=== PATIENT | female | born 2000 | race African-American/Black ===

== ENCOUNTER 2021-10-14 13:18 | Emergency (ER) | payer OTHER ==
[~2021-10-14] VITALS: Ht 157.5 cm; Wt 77.1 kg
--- NOTE | 2021-10-14 13:35 | NUR ---
patient brought into room 5a. complaining of lower abdominal pain has been seen at different hospital before where appendicitis was ruled out per patient statement. continues to have pain so has come in to be seen today.
[2021-10-14] MEDS ORDERED: QUET100T PO (13:36)
[2021-10-14] MEDS ORDERED: DEXT5TAB15 PO (13:38)
--- NOTE | 2021-10-14 13:38 | NUR ---
patient waiting to be evaluated by ER physician and taken to the bathroom for urine specimen.
[2021-10-14] MEDS ORDERED: TRAZ-182 PO (13:40)
[2021-10-14] MEDS ORDERED: LITH150C PO (13:41)
--- NOTE | 2021-10-14 13:48 | NUR ---
patient being seen and evaluated by doctor kaplan.
[2021-10-14] MEDS ORDERED: MORPHINE SULFATE 2 MG/1 ML DISP.SYRIN IV ONE (14:00)
[2021-10-14] MEDS ORDERED: IV NORMAL SALINE 1000 ML BAG IV ONE (14:00)
[2021-10-14] MEDS ORDERED: ONDANSETRON 4 MG/2 ML VIAL IV ONE (14:00)
[2021-10-14] MEDS ORDERED: MORPHINE SULFATE 2 MG/1 ML DISP.SYRIN ONE (14:01)
[2021-10-14] MEDS ORDERED: ONDANSETRON 4 MG/2 ML VIAL ONE (14:01)
[2021-10-14 14:02] LABS: *BILIRUBIN,URIN NEGATIVE (NEGATIVE); *BLOOD, URINE NEGATIVE (NEGATIVE); *COLOR,URINE YELLOW (YELLOW); *KETONES,URINE NEGATIVE (NEGATIVE); *UROBILINOGEN,URINE 0.2 E.U./dl (NORMAL); LEUKOCYTE ESTERASE ,URINE 3+ (NEGATIVE); NITRITE, URINE NEGATIVE (NEGATIVE); PH,URINE 8.5 (5.0-8.0); UGLUCOSE NEGATIVE (NEGATIVE)
[2021-10-14 14:05] LABS: *CLARITY,URINE SLIGHTLY CLOUDY (CLEAR)
[2021-10-14 14:06] LABS: *URINE HCG, QUAL NEGATIVE (NEGATIVE)
[2021-10-14 14:15] LABS: HEMATOCRIT 36.7 % (31.2-41.9); MEAN CORPUSCULAR HEMOGLOBIN 24.1 uug (24.7-32.8); MEAN CORPUSCULAR VOLUME 72.9 fL (75.5-95.3); PLATELET COUNT (AUTO) 336 K/uL (179-408)
--- NOTE | 2021-10-14 14:15 | NUR ---
patient taken to CT scan at this time.
[2021-10-14 14:27] LABS: RBC,URINE 0-3 /HPF (0-3); WBC,URINE 20-50 /HPF (0-3)
[2021-10-14 14:28] LABS: BACTERIA,URINE MODERATE /HPF (NONE SEEN); SQUAMOUS EPITHELIAL CELL,UR MODERATE /HPF (NONE SEEN)
[2021-10-14 14:31] LABS: BILIRUBIN,DIRECT 0.2 mg/dL (0.0-0.2); CREATININE 0.8 mg/dL (0.6-1.3); POTASSIUM 3.7 mmol/L (3.5-5.1); TOTAL PROTEIN, SERUM 7.6 g/dL (6.4-8.2)
[2021-10-14] MEDS ORDERED: MORPHINE SULFATE 4 MG/1 ML DISP.SYRIN IV ONE (14:45)
[2021-10-14] MEDS ORDERED: MORPHINE SULFATE 4 MG/1 ML DISP.SYRIN ONE (14:48)
[2021-10-14] MEDS ORDERED: KETOROLAC TROMETHAMINE 30 MG INJ ONE (15:18)
[2021-10-14] MEDS ORDERED: KETOROLAC TROMETHAMINE 30 MG INJ IVP ONE (15:30)
[2021-10-14] MEDS ORDERED: CEFTRIAXONE /D5W 50ML IVPB **ER PYXIS IV ONE (15:44)
[2021-10-14] MEDS ORDERED: CEFTRIAXONE 1 G in IV DEXTROSE 5% 50 ML IV ONE (15:45)
--- NOTE | 2021-10-14 16:20 | NUR ---
patient states pain is relieved better after toradol.
[2021-10-14] MEDS ORDERED: CEPH500C2 PO (16:26)
--- NOTE | 2021-10-14 16:52 | NUR ---
DCD instructions & prescription given to pt. who verbalized understanding. pt. left ambulatory pain well controlled.
[2021-10-15] MEDS ORDERED: LITH600C PO (18:32)
[2021-10-15] MEDS ORDERED: TRAZ-257 PO (18:32)
[2021-10-15] MEDS ORDERED: AMPH20CA3 PO (18:32)
[2021-10-15] MEDS ORDERED: QUET100T PO (18:32)
== END 2021-10-14 16:59 | disposition home or self-care (01) ==
LOC: ER 13:18
DX: N39.0 Urinary tract infection, site not specified (principal); N83.209 Unspecified ovarian cyst, unspecified side; R10.31 Right lower quadrant pain; Z82.49 Family history of ischemic heart disease and other diseases of the circulatory system; F31.9 Bipolar disorder, unspecified; Z79.899 Other long term (current) drug therapy
CPT/HCPCS: 36415; 74176; 76856; 80048; 80076; 81001; 83690; 84703; 85025; 87086; 96361; 96365; 96375; 96376; 99285; J0696; J1885; J2270 ×2; J2405; A4663

== ENCOUNTER 2021-10-15 18:14 | Inpatient (IN) | payer OTHER ==
[~2021-10-15] VITALS: Ht 157.5 cm; Wt 86.2 kg
[~2021-10-15 18:14] MED LIST: CEPH500C2 PO; DEXT5TAB15 PO; LITH150C PO; QUET100T PO; TRAZ-182 PO
[2021-10-15] MEDS ORDERED: AMPH20CA3 PO (18:32)
[2021-10-15] MEDS ORDERED: TRAZ-257 PO (18:32)
[2021-10-15] MEDS ORDERED: QUET100T PO (18:32)
[2021-10-15] MEDS ORDERED: LITH600C PO (18:32)
[2021-10-15] MEDS ORDERED: KETOROLAC TROMETHAMINE 15 MG INJ IVP ONE (18:45)
[2021-10-15] MEDS ORDERED: ONDANSETRON 4 MG/2 ML VIAL IV ONE (18:45)
[2021-10-15] MEDS ORDERED: HYDROMORPHONE 1 MG/1 ML DISP.SYRIN IV ONE ×2 (18:45→21:30)
[2021-10-15] MEDS ORDERED: HYDROMORPHONE 1 MG/1 ML DISP.SYRIN ONE ×2 (18:46→21:57)
[2021-10-15] MEDS ORDERED: KETOROLAC TROMETHAMINE 15 MG INJ ONE (18:47)
[2021-10-15 18:57] LABS: HEMATOCRIT 35.5 % (31.2-41.9); MEAN CORPUSCULAR HEMOGLOBIN 23.8 uug (24.7-32.8); MEAN CORPUSCULAR VOLUME 73.5 fL (75.5-95.3); PLATELET COUNT (AUTO) 352 K/uL (179-408)
[2021-10-15 18:59] LABS: CARBON DIOXIDE 27 mmol/L (21-32); CHLORIDE 103 mmol/L (98-107); CREATININE 0.9 mg/dL (0.6-1.3); GLUCOSE 104 mg/dL (74-106); POTASSIUM 3.8 mmol/L (3.5-5.1); UREA NITROGEN, BLOOD 4 mg/dL (7-18)
[2021-10-15] MEDS ORDERED: ONDANSETRON 4 MG/2 ML VIAL ONE (19:00)
[2021-10-15 19:05] LABS: ALANINE AMINOTRANSFERASE 19 U/L (14-59); ALKALINE PHOSPHATASE 72 U/L (50-136); ASPARTATE AMINOTRANSFERASE 12 U/L (15-37); BILIRUBIN,DIRECT 0.2 mg/dL (0.0-0.2); BILIRUBIN,TOTAL 0.4 mg/dL (0.2-1.0); LIPASE 53 U/L (73-393); TOTAL PROTEIN, SERUM 7.5 g/dL (6.4-8.2)
[2021-10-15] MEDS ORDERED: IV NORMAL SALINE 250 ML BAG ONE (19:30)
[2021-10-15] MEDS ORDERED: PIPERACILLIN SODIUM/TAZOBACTAM 3.375 G in IV DEXTROSE 5% 50 ML IV ONE (19:30)
[2021-10-15] MEDS ORDERED: IOHEXOL 300MG/ML 100 ML INFUS..BTL ONE ×2 (19:31→19:49)
[2021-10-15] MEDS ORDERED: SWABABLE VALVE TRANSFER SET EA MC ONE (19:33)
[2021-10-15] MEDS ORDERED: PIPERACILLIN/TAZOBACTAM/D5W 50 ML IV ONE (19:40)
--- NOTE | 2021-10-15 20:01 | NUR ---
ESTHER CALLED AND WANTS A CONSENT OFR CT - OBTAINED CONSENT AND SIGNED BY PATIENT .
[2021-10-15 20:03] LABS: *BILIRUBIN,URIN NEGATIVE (NEGATIVE); *CLARITY,URINE SLIGHTLY CLOUDY (CLEAR); *COLOR,URINE YELLOW (YELLOW); *KETONES,URINE NEGATIVE (NEGATIVE); *UROBILINOGEN,URINE 0.2 E.U./dl (NORMAL); LEUKOCYTE ESTERASE ,URINE 3+ (NEGATIVE); NITRITE, URINE NEGATIVE (NEGATIVE); UGLUCOSE NEGATIVE (NEGATIVE)
[2021-10-15 20:04] LABS: *BLOOD, URINE TRACE (NEGATIVE)
--- NOTE | 2021-10-15 20:22 | NUR ---
PATIENT WENT TO CT VIA WHEELCHAIR FOR CT ABDOMEN /PELVIS WITH CONTRAST .
--- NOTE | 2021-10-15 20:35 | NUR ---
BACK FROM CT - TOLERATED TEST.
[2021-10-15] MEDS ORDERED: diphenhydrAMINE 50 MG/1 ML VIAL IV ONE (21:30)
--- NOTE | 2021-10-15 21:55 | NUR ---
CALLED EPIC SERVICE FOR SARAH JACKSON .
[2021-10-15] MEDS ORDERED: diphenhydrAMINE 50 MG/1 ML VIAL ONE (21:57)
--- NOTE | 2021-10-15 22:28 | NUR ---
[facility] OF [facility] -STAFF TEL:[phone]:Geraldo DAILEY -CLINICAL DIRECTOR TEL:([phone]) LILIAM REYES -REHANGER TEl:([phone]) PREM CALIXTO TELEPHONE ANSWERING SERVICE OPERATOR NURSE -[phone]. PLEASE CALL FACILITY ONCE PATIENT IS DISCHARGE SO PERSONNEL FROM THE FACILITY CAN PICK HER UP .
[2021-10-15] MEDS ORDERED: LORAZEPAM 2 MG/1 ML VIAL IV PRN (22:30)
[2021-10-15] MEDS ORDERED: ACETAMINOPHEN 650 MG SUPP.RECT RC PRN (22:30)
--- NOTE | 2021-10-15 22:47 | NUR ---
PATIENT ORDERED FOOD FROM THE [facility] - INFORMED NPO AFTER MIDNIGHT .
--- NOTE | 2021-10-15 22:48 | NUR ---
NOTIFIED PATIENT MOTHER THAT HER DAUGHTER WILL BE ADMITTED TO THE MEDICAL SURGICAL FLOOR UNIT BED NO.301 A, AND VISITING HOURS STARTS AT 0900 TO 2100.
--- NOTE | 2021-10-15 22:59 | NUR ---
COVID -TEST COLLECTED AND MRSA DONE .
[2021-10-15 23:07] LABS: BACTERIA,URINE MODERATE /HPF (NONE SEEN); SQUAMOUS EPITHELIAL CELL,UR MODERATE /HPF (NONE SEEN); WBC,URINE 20-50 /HPF (0-3)
--- NOTE | 2021-10-15 23:12 | NUR ---
Pt. admitted to MEDICAL SURGICAL UNIT BED ROOM NO.301A REPORT GIVEN TO AUGUST MENDEZ USING SBARQ , under care of ,DX:ABDOMINAL APIN -COLITIS R/O APPENDICITIS . Belongings List completed AND ALL BELONGINGS WENT WITH PATIENT.
--- NOTE | 2021-10-16 00:20 | NUR ---
Received patient from ER, alert, oriented x4. No shortness of breath noted, Complaint of pain when mobilizing. Not noted at this time. Instructed on NPO. IVF D5% NS 0.9 1L at 80cc/hr started as ordered. Patient voiding freely and ambulating to the bathroom.
[2021-10-16] MEDS ORDERED: PIPERACILLIN SODIUM/TAZOBACTAM 3.375 G in IV DEXTROSE 5% 50 ML IV SCH ×2 (02:00→08:00)
[2021-10-16] MEDS ORDERED: PIPERACILLIN/TAZOBACTAM/D5W 50 ML IV ONE (02:22)
[2021-10-16] MEDS ORDERED: REMEDY ESSENTIAL ZINC PASTE 113 GM TOP PRN (02:30)
[2021-10-16] MEDS: MORPHINE SULFATE 2 MG/1 ML DISP.SYRIN IV PRN ×4 (02:44→14:46)
--- NOTE | 2021-10-16 02:44 | NUR ---
Patient complaint of pain, 7/10 at abdominal area, Morphine 2mg IV PRN given, able to slept well 30minutes after administration. Abdomen is soft , no tenderness noted, no vomiting and nausea noted.
[2021-10-16] MEDS: IV D5/ 0.9% NACL 1,000 ML IV PRN ×3 (02:51→19:21)
[2021-10-16 06:26] LABS: HEMATOCRIT 34.2 % (31.2-41.9); MEAN CORPUSCULAR VOLUME 74.6 fL (75.5-95.3); PLATELET COUNT (AUTO) 326 K/uL (179-408)
[2021-10-16 07:03] LABS: BILIRUBIN,TOTAL 0.4 mg/dL (0.2-1.0); CREATININE 0.8 mg/dL (0.6-1.3); MAGNESIUM 2.2 mg/dL (1.8-2.4); PHOSPHOROUS 2.8 mg/dL (2.5-4.9); POTASSIUM 3.7 mmol/L (3.5-5.1); TOTAL PROTEIN, SERUM 6.5 g/dL (6.4-8.2)
[2021-10-16] MEDS: PANTOPRAZOLE SODIUM 40 MG VIAL IV SCH (08:23)
[2021-10-16 09:56] LABS: BAND % (MANUAL) 1 % (0-10); EOSINOPHILS % (MANUAL) 6 % (0-8); LYMPHOCYTES % (MANUAL) 7 % (20-40); MONOCYTES % (MANUAL) 6 % (2-10); NEUTROPHILS % (MANUAL) 80 % (42-75)
[2021-10-16] MEDS: PIPERACILLIN SODIUM/TAZOBACTAM 3.375 G in IV DEXTROSE 5% 100 ML IV SCH ×2 (10:48→18:04)
[2021-10-16 12:04] VITALS: BP 116/72
[2021-10-16] MEDS ORDERED: LITHIUM CARBONATE 1200 MG PO SCH (13:15)
[2021-10-16] MEDS ORDERED: ATOM18CA PO (13:23)
[2021-10-16] MEDS ORDERED: OLAN15TA3 PO (13:25)
[2021-10-16] MEDS ORDERED: LITH300T PO (13:45)
[2021-10-16] MEDS: KETOROLAC TROMETHAMINE 15 MG INJ IVP PRN (15:51)
[2021-10-16] MEDS: LITHIUM CARBONATE 300 MG TABLET.SA PO SCH (15:54)
[2021-10-16 16:10] VITALS: BP 115/69
[2021-10-16] MEDS ORDERED: LITHIUM CARBONATE 150 MG CAPSULE PO SCH (17:00)
[2021-10-16] MEDS ORDERED: QUETIAPINE FUMARATE 100 MG TABLET PO SCH (18:00)
[2021-10-16] MEDS ORDERED: TRAZODONE 50 MG TABLET PO SCH (18:00)
[2021-10-16] MEDS: TRAZODONE 100 MG TABLET PO SCH (18:05)
[2021-10-16] MEDS: QUETIAPINE FUMARATE 100 MG TABLET PO SCH (18:05)
[2021-10-16] MEDS: ONDANSETRON 4 MG/2 ML VIAL IV PRN (18:06)
[2021-10-16 20:00] VITALS: BP 107/61
--- NOTE | 2021-10-16 20:00 | NUR ---
PATIENT ASLEEP IN BED. NO S/S OF ANY PAIN OR DISCOMFORT. VS WNL. NO. RESP. DISTRESS NOTED. CALL LIGHT IN REACH. ALL NEEDS ATTENDED. WILL CONTINUE TO MONITOR AND ASSESS.
[2021-10-16] MEDS: OLANZAPINE ZYDIS 5 MG TAB.RAPDIS PO SCH (20:59)
[2021-10-16] MEDS ORDERED: OLANZAPINE ZYDIS 5 MG TAB.RAPDIS PO SCH (21:00)
[2021-10-17] MEDS: MORPHINE SULFATE 2 MG/1 ML DISP.SYRIN IV PRN ×4 (00:21→21:50)
[2021-10-17] MEDS: PIPERACILLIN SODIUM/TAZOBACTAM 3.375 G in IV DEXTROSE 5% 100 ML IV SCH ×3 (02:08→17:44)
[2021-10-17] MEDS: KETOROLAC TROMETHAMINE 15 MG INJ IVP PRN (03:23)
[2021-10-17] MEDS: ACETAMINOPHEN 325 MG TABLET PO PRN ×2 (03:59→14:46)
[2021-10-17 04:00] VITALS: BP 100/40
--- NOTE | 2021-10-17 04:00 | NUR ---
PATIENT AWAKE IN BED. TEMPERATURE 101.2, COOLING MEASURES PROVIDED AND TYLENOL 650MG PO PRN GIVEN. WILL CONTINUE TO MONITOR AND ASSESS.
[2021-10-17] MEDS: IV D5/ 0.9% NACL 1,000 ML IV PRN ×2 (04:56→17:20)
--- NOTE | 2021-10-17 05:11 | NUR ---
PATIENT ASLEEP IN BED. EASILY AROUSABLE. AFEBRILE. RECHECKED PATIENTS TEMPERATURE AND NOTED 98.3. PATIENT DENIES ANY PAIN OR DISCOMFORT. NO RESP. DISTRESS NOTED. IVF INFUSING WELL. CALL LIGHT IN REACH. ALL NEEDS ATTENDED. WILL CONTINUE TO MONITOR AND ASSESS.
--- NOTE | 2021-10-17 08:00 | NUR ---
AWAKE ALERT AND ORIENTED X3, RESTING COMFORTABLY IN BED CONTINUE WITH IVF AND IV ANTIBIOTICS, NO ALLERGY REACTION
[2021-10-17] MEDS: PANTOPRAZOLE SODIUM 40 MG VIAL IV SCH (08:41)
[2021-10-17] MEDS ORDERED: AMPHET PO SCH (09:00)
[2021-10-17] MEDS ORDERED: D AMPHET PO SCH (09:00)
[2021-10-17] MEDS ORDERED: AMPHET ASP PO SCH (09:00)
[2021-10-17] MEDS ORDERED: [UNRECOGNIZED DRUG - OTHER] PO SCH (09:00)
[2021-10-17 10:00] LABS: HEMATOCRIT 34.9 % (31.2-41.9); MEAN CORPUSCULAR HEMOGLOBIN 24.1 uug (24.7-32.8); PLATELET COUNT (AUTO) 294 K/uL (179-408)
[2021-10-17 10:05] LABS: CREATININE 0.9 mg/dL (0.6-1.3); POTASSIUM 3.4 mmol/L (3.5-5.1)
[2021-10-17 11:01] VITALS: BP 106/50
[2021-10-17 11:04] VITALS: BP 115/65
[2021-10-17] MEDS ORDERED: LITHIUM CARBONATE 300 MG TABLET.SA PO SCH ×2 (12:00)
--- NOTE | 2021-10-17 12:00 | NUR ---
VOMITED X1 WITH FOOD PREVIOUSLY INGESTED, MEDICATED WITH ZOFRAN WITH GOOD RELIEF
[2021-10-17] MEDS: LITHIUM CARBONATE 300 MG TABLET.SA PO SCH (12:09)
[2021-10-17] MEDS: ONDANSETRON 4 MG/2 ML VIAL IV PRN (14:01)
[2021-10-17 15:11] VITALS: BP 137/75
--- NOTE | 2021-10-17 15:19 | NUR ---
MULTIPLE IV ATTEMPT DONE BUT TO NO AVAIL, MIDLINE INSERTION DONE ON HER RIGHT UPPER ARM #18
--- NOTE | 2021-10-17 15:28 | NUR ---
TEMP 101.O AND ABOVE TYLENOL GIVEN ORALLY AND OBSERVE
[2021-10-17] MEDS ORDERED: POTASSIUM CHLORIDE 20 MEQ TAB.PRT.SR PO ONE (16:00)
[2021-10-17] MEDS: TRAZODONE 100 MG TABLET PO SCH (17:40)
[2021-10-17] MEDS: QUETIAPINE FUMARATE 100 MG TABLET PO SCH (17:40)
[2021-10-17 19:41] LABS: EOSINOPHILS % (MANUAL) 4 % (0-8); LYMPHOCYTES % (MANUAL) 16 % (20-40); MONOCYTES % (MANUAL) 16 % (2-10); NEUTROPHILS % (MANUAL) 64 % (42-75)
[2021-10-17] MEDS: OLANZAPINE ZYDIS 5 MG TAB.RAPDIS PO SCH (21:00)
--- NOTE | 2021-10-17 21:25 | NUR ---
Pt refused Olanzapine 15 mg PO. Educated pt on risks and benefits of medication, continued to refused. Pt states, " I stopped taking the medication because it gives me stomach issues". 15 mg Olanzapine opened and wasted.
[2021-10-17] MEDS ORDERED: NORMAL SALINE NASAL 45 ML BOTTLE NS PRN (23:00)
[2021-10-18] MEDS: ACETAMINOPHEN 325 MG TABLET PO PRN ×2 (00:29→20:37)
[2021-10-18] MEDS: MORPHINE SULFATE 2 MG/1 ML DISP.SYRIN IV PRN ×7 (01:13→21:39)
[2021-10-18] MEDS: PIPERACILLIN SODIUM/TAZOBACTAM 3.375 G in IV DEXTROSE 5% 100 ML IV SCH ×3 (01:13→16:23)
--- NOTE | 2021-10-18 01:15 | NUR ---
Pt temp slightly elevated, 100.2. Cooling measures initiated, Tylenol given. No acute distress noted.
[2021-10-18 04:00] VITALS: BP 107/77
[2021-10-18] MEDS: IV D5/ 0.9% NACL 1,000 ML IV PRN ×2 (05:56→18:46)
[2021-10-18 07:05] LABS: PLATELET COUNT (AUTO) 279 K/uL (179-408)
[2021-10-18 07:16] LABS: CREATININE 0.9 mg/dL (0.6-1.3); MAGNESIUM 1.9 mg/dL (1.8-2.4); PHOSPHOROUS 3.4 mg/dL (2.5-4.9); POTASSIUM 3.8 mmol/L (3.5-5.1)
--- NOTE | 2021-10-18 07:19 | NUR ---
pt slept throughout the night. Complained of pain around abdominal area, morphine IV given as ordered. KP midline intact and running D5NS @ 80mls/hr. ZOSYN ABX given. No signs of acute distress. Patient c/o nose congestion, [place] spray nasal ordered per MD. Able to walk to bathroom. Compliant with care. No episodes of vomiting. Droplet precautions maintained. Call lights within reach. Safety measures maintained.
[2021-10-18 07:26] LABS: NEUTROPHILS % (MANUAL) 0 % (42-75)
[2021-10-18] MEDS: PANTOPRAZOLE SODIUM 40 MG VIAL IV SCH ×2 (09:30→20:37)
[2021-10-18 10:05] VITALS: BP 121/79
[2021-10-18] MEDS: BENZONATATE 100 MG CAPSULE PO SCH ×3 (11:37→21:40)
[2021-10-18] MEDS: LITHIUM CARBONATE 300 MG TABLET.SA PO SCH (11:38)
--- NOTE | 2021-10-18 12:00 | NUR ---
NO ACUTE CHANGE FROM MORNING ASSESSMENT
[2021-10-18 12:38] VITALS: BP 127/88
--- NOTE | 2021-10-18 13:39 | NUR ---
DR MINAYA CALLED FOR GI CONSULT WITH ORDER TO COLLECT STOOL AND NO NEED FOR COLONOSCOPY AT THIS TIME
[2021-10-18 16:06] VITALS: BP 137/79
--- NOTE | 2021-10-18 17:16 | NUR ---
CONTINUE PAIN MANAGEMENT ORDERED, NO BLOODY STOOL STATED BY PATIENT. CONTINUE IV ANTIBIOTIC
[2021-10-18] MEDS: QUETIAPINE FUMARATE 100 MG TABLET PO SCH (17:32)
[2021-10-18] MEDS: TRAZODONE 100 MG TABLET PO SCH (17:32)
[2021-10-18] MEDS: DICYCLOMINE HCL 10 MG CAPSULE PO SCH (20:13)
[2021-10-18 20:27] VITALS: BP 96/51
[2021-10-18] MEDS: OLANZAPINE ZYDIS 5 MG TAB.RAPDIS PO SCH (21:00)
[2021-10-19] MEDS: DICYCLOMINE HCL 10 MG CAPSULE PO SCH ×4 (00:29→17:39)
[2021-10-19] MEDS: MORPHINE SULFATE 2 MG/1 ML DISP.SYRIN IV PRN ×6 (00:36→21:11)
[2021-10-19 01:06] LABS: *OCCULT BLOOD STOOL NEGATIVE (NEGATIVE)
[2021-10-19] MEDS: PIPERACILLIN SODIUM/TAZOBACTAM 3.375 G in IV DEXTROSE 5% 100 ML IV SCH ×3 (01:06→17:39)
[2021-10-19 04:30] VITALS: BP 120/69
[2021-10-19] MEDS: BENZONATATE 100 MG CAPSULE PO SCH ×3 (05:05→21:01)
[2021-10-19 06:54] LABS: HEMATOCRIT 34.6 % (31.2-41.9); MEAN CORPUSCULAR HEMOGLOBIN 24.3 uug (24.7-32.8); MEAN CORPUSCULAR VOLUME 73.7 fL (75.5-95.3); PLATELET COUNT (AUTO) 307 K/uL (179-408)
--- NOTE | 2021-10-19 06:54 | NUR ---
Pt slept intermittently through the night. AOX4. Able to make needs known. Morphine IV given as ordered for pain. Stool sample sent to lab. Pt complained of congestion in nose, gave pt [place] Nasal [place]. Effective for congestion. KP midline intact, infusing D5NS at 80 mls/hr. Zosyn abx given. No signs of acute distress. Denies SOB. Snacks given as requested. Droplet precautions. Call lights within reach. Safety measures maintained.
[2021-10-19 07:07] LABS: CREATININE 0.8 mg/dL (0.6-1.3); MAGNESIUM 1.8 mg/dL (1.8-2.4); PHOSPHOROUS 3.5 mg/dL (2.5-4.9); POTASSIUM 3.6 mmol/L (3.5-5.1)
[2021-10-19] MEDS: PANTOPRAZOLE SODIUM 40 MG VIAL IV SCH ×2 (09:22→21:09)
[2021-10-19] MEDS: IV D5/ 0.9% NACL 1,000 ML IV PRN ×2 (10:44→22:30)
--- NOTE | 2021-10-19 11:00 | NUR ---
Patient was given Morphine 2 mg/ ml IV push at 10:22, but it was documented in the computer twice. I could not undo the administration time 10:45 that is wrong.
[2021-10-19] MEDS ORDERED: KETOROLAC TROMETHAMINE 10 MG TABLET PO PRN (12:00)
[2021-10-19 12:08] VITALS: BP 112/68
[2021-10-19] MEDS: LITHIUM CARBONATE 300 MG TABLET.SA PO SCH (12:26)
[2021-10-19 16:15] VITALS: BP 113/75
--- NOTE | 2021-10-19 16:24 | NUR ---
Received patient awake in her room. A/O X 3 to person, place. Pt. was having severe abdominal pain, Morphine 2 mg/ml was given at 10:45 and 15:17, effective. Patient tested positive for Covid. Pt. has upper arm midline. Pt. is ambulatory. Continent. Compliant with medications. Pt. is on cardiac diet. Pt. is bipolar. Fall and safety precautions implemented.
[2021-10-19] MEDS: TRAZODONE 100 MG TABLET PO SCH (17:39)
[2021-10-19] MEDS: QUETIAPINE FUMARATE 100 MG TABLET PO SCH (17:39)
[2021-10-19 20:24] VITALS: BP 120/64
[2021-10-19] MEDS: OLANZAPINE ZYDIS 5 MG TAB.RAPDIS PO SCH (21:00)
[2021-10-20] MEDS: DICYCLOMINE HCL 10 MG CAPSULE PO SCH ×5 (00:25→23:36)
[2021-10-20] MEDS: PIPERACILLIN SODIUM/TAZOBACTAM 3.375 G in IV DEXTROSE 5% 100 ML IV SCH ×3 (01:16→17:31)
[2021-10-20] MEDS: MORPHINE SULFATE 2 MG/1 ML DISP.SYRIN IV PRN (02:55)
[2021-10-20 04:30] VITALS: BP 90/44
--- NOTE | 2021-10-20 05:43 | NUR ---
Received to care, lying in bed, with C/L in reach. Remains on isolation for Covid. Refused night time dose of Zyprexa, stating that it hurts her stomach. Offerewd her a snack to take with it, but she still declined. Encouraged her to discuss this with her doctor, in the morning. Medicated twice with IV Morphine. Currently sleeping. No distress noted.
[2021-10-20] MEDS: BENZONATATE 100 MG CAPSULE PO SCH ×3 (06:10→21:19)
[2021-10-20 07:00] LABS: HEMATOCRIT 35.3 % (31.2-41.9); MEAN CORPUSCULAR HEMOGLOBIN 24.4 uug (24.7-32.8); MEAN CORPUSCULAR VOLUME 73.1 fL (75.5-95.3); PLATELET COUNT (AUTO) 290 K/uL (179-408)
[2021-10-20 07:14] LABS: CREATININE 0.9 mg/dL (0.6-1.3); PHOSPHOROUS 3.1 mg/dL (2.5-4.9); POTASSIUM 3.7 mmol/L (3.5-5.1)
[2021-10-20] MEDS: LITHIUM CARBONATE 300 MG TABLET.SA PO SCH (11:00)
[2021-10-20 12:19] VITALS: BP 114/57
[2021-10-20] MEDS: ENSURE CLEAR 240 ML LIQUID (MIX BERRY) PO SCH (12:42)
--- NOTE | 2021-10-20 13:42 | NUR ---
Pt is a/o x 4, complains of abdominal pain. No complaint of SOB, no signs of acute distress. Pt is ambulatory, afebrile. Comfort measures provided, call light within reach. Will continue to monitor.
[2021-10-20 16:11] VITALS: BP 109/55
[2021-10-20] MEDS: TRAZODONE 100 MG TABLET PO SCH (17:29)
[2021-10-20] MEDS: PANTOPRAZOLE SODIUM 40 MG TABLET.DR PO SCH (17:29)
[2021-10-20] MEDS: QUETIAPINE FUMARATE 100 MG TABLET PO SCH (17:30)
[2021-10-20 20:10] VITALS: BP 131/77
[2021-10-20] MEDS: OLANZAPINE ZYDIS 5 MG TAB.RAPDIS PO SCH ×2 (20:31→20:37)
[2021-10-20] MEDS: IV D5/ 0.9% NACL 1,000 ML IV PRN (21:18)
[2021-10-21] MEDS: PIPERACILLIN SODIUM/TAZOBACTAM 3.375 G in IV DEXTROSE 5% 100 ML IV SCH ×2 (02:13→09:32)
[2021-10-21 04:50] VITALS: BP 110/60
--- NOTE | 2021-10-21 05:47 | NUR ---
Slept throughout the night. Denies pain at this time. Able to make needs known. IV site intact. Covid safety protocols kept in place. Will endorse to day shift.
[2021-10-21] MEDS: BENZONATATE 100 MG CAPSULE PO SCH ×2 (06:06→13:06)
[2021-10-21] MEDS: PANTOPRAZOLE SODIUM 40 MG TABLET.DR PO SCH (06:06)
[2021-10-21] MEDS: DICYCLOMINE HCL 10 MG CAPSULE PO SCH ×2 (06:06→13:06)
[2021-10-21 07:11] LABS: HEMATOCRIT 35.9 % (31.2-41.9); MEAN CORPUSCULAR HEMOGLOBIN 24.3 uug (24.7-32.8); MEAN CORPUSCULAR VOLUME 73.6 fL (75.5-95.3); PLATELET COUNT (AUTO) 310 K/uL (179-408)
--- NOTE | 2021-10-21 07:28 | NUR ---
RECEIVED SLEEPING EASILY AROUSABLE TO STIMULI. DENIES SOB OR CHEST PAIN. IV HYDRATION ONGOING TOLERATED. COVID ISOLATION PROTOCOL CONTINUED. SAFETY MAINTAINED. KEPT COMFORTABLE.
[2021-10-21 07:33] LABS: CREATININE 0.8 mg/dL (0.6-1.3); MAGNESIUM 1.9 mg/dL (1.8-2.4); PHOSPHOROUS 4.1 mg/dL (2.5-4.9); POTASSIUM 3.9 mmol/L (3.5-5.1)
[2021-10-21] MEDS: ENSURE CLEAR 240 ML LIQUID (MIX BERRY) PO SCH (08:28)
[2021-10-21 12:04] VITALS: BP 122/68
[2021-10-21] MEDS: LITHIUM CARBONATE 300 MG TABLET.SA PO SCH (13:07)
[2021-10-21] MEDS ORDERED: BENZ-38 PO (13:55)
[2021-10-21] MEDS ORDERED: KETO10TA2 PO (13:55)
[2021-10-21] MEDS ORDERED: CIPR-262 PO (13:55)
--- NOTE | 2021-10-21 16:25 | NUR ---
Patient discharged to home. Removed KP midline no bleeding noted. Denies pain or sob. Picked up by her mother in stable condition.
== END 2021-10-21 16:20 | disposition home or self-care (01) | DRG 871 ==
LOC: ER 18:15 → MEDSURG3 23:06
PROVIDERS: ADMIT Nurse Practitioner Acute Care; ATTEND Registered Nurse
PROC: 05H533Z Insertion of Infusion Device into Right Subclavian Vein, Percutaneous Approach (ICD-10-PCS; principal; 2021-10-17)
PROC: B546ZZA Ultrasonography of Right Subclavian Vein, Guidance (ICD-10-PCS; 2021-10-17)
DX: A41.9 Sepsis, unspecified organism (principal); U07.1 COVID-19; N39.0 Urinary tract infection, site not specified; A09 Infectious gastroenteritis and colitis, unspecified; E44.0 Moderate protein-calorie malnutrition; D68.69 Other thrombophilia; F31.9 Bipolar disorder, unspecified; Z20.822 Contact with and (suspected) exposure to COVID-19; E88.09 Other disorders of plasma-protein metabolism, not elsewhere classified; E66.01 Morbid (severe) obesity due to excess calories; Z68.34 Body mass index [BMI] 34.0-34.9, adult; Z76.5 Malingerer [conscious simulation]; F98.8 Other specified behavioral and emotional disorders with onset usually occurring in childhood and adolescence; B96.89 Other specified bacterial agents as the cause of diseases classified elsewhere
CPT/HCPCS: 36415; 70030-TC; 71250; 83550; 83690; 83735; 84100; 85025; 85730; 87040; 87046; 87086; A4663; A6213; C9113; G0378; J1170; J1200; J1885; J2270; J2405; J2543; J7040; J8499; Q9967; U0003